=== PATIENT | female | born 1985 | race Caucasian/White ===

== ENCOUNTER 2019-08-06 15:14 | Emergency (ER) | payer OTHER ==
[~2019-08-06] VITALS: Ht 172.7 cm; Wt 68.0 kg
[2019-08-06 15:45] LABS: HEMATOCRIT 42.1 % (37.0-47.0); HEMOGLOBIN 14.3 gm/dL (12.0-15.0); MCH 30.3 pg (26.0-34.0); MCHC 33.9 g/dL (28.0-37.0); MCV 89.5 fL (80.0-100.0); MPV 9.3 fl. (7.2-11.1); RBC 4.71 mil/uL (4.20-5.00); RDW-CV 13.1 % (10.5-14.5); WBC 11.3 thou/uL (4.0-11.0)
[2019-08-06 15:52] LABS: URINE BILIRUBIN NEGATIVE (Negative); URINE BLOOD 1+ (Negative); URINE CLARITY CLEAR; URINE COLOR YELLOW; URINE GLUCOSE-RANDOM NEGATIVE (Negative); URINE KETONES 1+ (Negative); URINE LEUKOCYTES-REFLEX TRACE (Negative); URINE NITRITE-REFLEX NEGATIVE (Negative); URINE PROTEIN NEGATIVE (Negative); URINE UROBILINOGEN 0.2 E.U./dl (0.2-1.0)
[2019-08-06 16:01] LABS: AMP/METHAMP Negative (Negative); BARBITURATES Negative (Negative); BENZODIAZEPINES Negative (Negative); COCAINE Negative (Negative); METHADONE Negative (Negative); OPIATES Negative (Negative); PCP Negative (Negative); THC Negative (Negative)
[2019-08-06 16:04] LABS: MUCUS None Seen strn/LPF (None Seen)
[2019-08-06 16:05] LABS: BACTERIA-REFLEX 1-9 Few /HPF (None Seen); CASTS None Seen /LPF (None Seen); CRYSTALS None Seen /LPF (None Seen); SQUAMOUS 4-10 Moderate /LPF (0-3); URINE RBC 0-2 Rare /HPF (0-2); URINE WBC-REFLEX 0-5 Rare /HPF (0-5)
[2019-08-06] MEDS ORDERED: PEPCID40 MG PO (16:11)
[2019-08-06] MEDS ORDERED: PREDNISONE50 MG PO (16:11)
[2019-08-06 16:30] VITALS: BP 106/61
--- NOTE | 2019-08-07 14:31 | EKG ---
[place] [address] ELECTROCARDIOGRAM REPORT Name: JOSSELYN MULLER Room: [facility]#: [id number] Admission: 08/06/19 Attend Phys: Discharge: 08/06/19 Date of : 83 Report #: [id number] THIS REPORT FOR: //name// [facility] ED Test Date: 2019-08-06 Test Time: 15:18:33 Pat Name: JOSSELYN MULLER Department: Room: Gender: F [employer]: : 1985 Requested By: Sally Welsh Order Number: [id number] MD: Jacobo Gaona Measurements Intervals [place] Rate: 73 P: 3 LA: 148 QRS: 7 QRSD: 91 T: 18 QT: 395 QTc: 436 Interpretive Statements Sinus rhythm Ventricular premature complex No previous ECG available for comparison Electronically Signed On 08-07-2019 14:31:01 [employer] by Jacobo Gaona [email or web address] <ELECTRONICALLY SIGNED> By: Jacobo Gaona MD, [facility] 08/07/19 1431 1518 1518 Jacobo Gaona MD, FACC /EPI
== END 2019-08-06 16:31 | disposition home or self-care (01) ==
LOC: M.ERS 15:14
PROVIDERS: Personal Emergency Response Attendant
DX: L29.8 Other pruritus (principal); T48.4X5A Adverse effect of expectorants, initial encounter; Z90.49 Acquired absence of other specified parts of digestive tract; Z88.5 Allergy status to narcotic agent; Z88.6 Allergy status to analgesic agent; Z88.8 Allergy status to other drugs, medicaments and biological substances; Z91.018 Allergy to other foods; Y92.89 Other specified places as the place of occurrence of the external cause

== ENCOUNTER 2020-08-23 13:33 | Emergency (ER) | payer OTHER ==
[~2020-08-23] VITALS: Ht 172.7 cm; Wt 59.4 kg
[~2020-08-23 13:33] MED LIST: PEPCID40 MG PO; PREDNISONE50 MG PO
[2020-08-23] MEDS ORDERED: FLOMAX0.4 MG PO (13:45)
[2020-08-23] MEDS ORDERED: PROAIR HFA8.5 GM INH (13:45)
[2020-08-23] MEDS ORDERED: MACROBID 100 M100 MG PO (13:45)
[2020-08-23] MEDS ORDERED: OXYCODONE (13:45)
[2020-08-23] MEDS ORDERED: ALPRAZOLAM 0.50.5 M1 PO (13:46)
[2020-08-23] MEDS ORDERED: DUONEB (13:46)
[2020-08-23 13:59] LABS: URINE BILIRUBIN NEGATIVE (Negative); URINE BLOOD 3+ (Negative); URINE COLOR YELLOW; URINE GLUCOSE-RANDOM NEGATIVE (Negative); URINE KETONES NEGATIVE (Negative); URINE LEUKOCYTES-REFLEX 1+ (Negative); URINE NITRITE-REFLEX NEGATIVE (Negative); URINE PROTEIN NEGATIVE (Negative); URINE SPECIFIC GRAVITY 1.015 (1.005-1.030); URINE UROBILINOGEN 0.2 E.U./dl (0.2-1.0)
[2020-08-23 14:00] LABS: URINE CLARITY CLOUDY
[2020-08-23 14:06] LABS: SQUAMOUS >10 Many /LPF (0-3)
[2020-08-23 14:07] LABS: BACTERIA-REFLEX >30 Many /HPF (None Seen); CASTS None Seen /LPF (None Seen); URINE RBC >20 Many /HPF (0-2)
[2020-08-23 14:08] LABS: AMORPHOUS URATES Few /LPF (None Seen)
[2020-08-23 14:31] LABS: ABSOLUTE EOSINOPHILS 0.7 thou/uL (0.0-0.7); ABSOLUTE LYMPHOCYTES 1.9 thou/uL (0.8-5.3); ABSOLUTE MONOCYTES 0.9 thou/uL (0.0-1.2); ABSOLUTE NEUTROPHILS 6.4 thou/uL (1.6-8.1); BASOPHILS 0.4 %; EOSINOPHILS 6.9 %; HEMOGLOBIN 14.5 gm/dL (12.0-15.0); LYMPHOCYTES 18.8 %; MCH 30.4 pg (26.0-34.0); MCHC 33.8 g/dL (28.0-37.0); MONOCYTES 8.8 %; MPV 9.1 fl. (7.2-11.1); NUCLEATED RBCS 0 /100WBC; PLATELET COUNT* 242 thou/uL (150-400); POLYS 65.1 %; RBC 4.78 mil/uL (4.20-5.00); RDW-CV 12.2 % (10.5-14.5); WBC 9.8 thou/uL (4.0-11.0)
[2020-08-23 14:39] LABS: CALCIUM 9.1 mg/dL (8.5-10.1); CREATININE 0.7 mg/dL (0.6-1.3); POTASSIUM 3.9 mmol/L (3.5-5.1)
[2020-08-23 14:44] LABS: ALBUMIN 3.4 g/dL (3.4-5.0); TOTAL BILIRUBIN 0.1 mg/dL (<0.1-1.0); TOTAL PROTEIN 6.9 g/dL (6.4-8.2)
[2020-08-23] MEDS ORDERED: HYDROCODON-ACE1 EAC7 PO (16:37)
[2020-08-23] MEDS ORDERED: CIPRO500 MG PO (16:37)
[2020-08-23] MEDS ORDERED: ONDANSETRON ODT4 MG PO (16:37)
[2020-08-23] MEDS ORDERED: DIFLUCAN150 MG PO (18:50)
[2020-08-23 19:03] VITALS: BP 103/78
== END 2020-08-23 19:05 | disposition home or self-care (01) ==
LOC: M.ERS 13:33
PROVIDERS: Physician Assistant
DX: N39.0 Urinary tract infection, site not specified (principal); Z88.6 Allergy status to analgesic agent; Z88.8 Allergy status to other drugs, medicaments and biological substances; Z90.49 Acquired absence of other specified parts of digestive tract

== ENCOUNTER → 2020-10-02 | Outpatient (CLI) | payer OTHER ==
[~2020-10-02] MED LIST changes: +ALPRAZOLAM 0.50.5 M1 PO; +CIPRO500 MG PO; +DIFLUCAN150 MG PO; +DUONEB; +FLOMAX0.4 MG PO; +HYDROCODON-ACE1 EAC7 PO; +MACROBID 100 M100 MG PO; +ONDANSETRON ODT4 MG PO; +OXYCODONE; +PROAIR HFA8.5 GM INH
== END | disposition home or self-care (01) ==
LOC: M.RAD 09-24 13:43
PROVIDERS: ATTEND Orthopaedic Surgery
DX: M25.552 Pain in left hip (principal); S73.102A Unspecified sprain of left hip, initial encounter; Z98.890 Other specified postprocedural states; Z79.899 Other long term (current) drug therapy; Z88.8 Allergy status to other drugs, medicaments and biological substances; X58.XXXA Exposure to other specified factors, initial encounter; Y93.89 Activity, other specified; Y92.89 Other specified places as the place of occurrence of the external cause; Y99.8 Other external cause status

== ENCOUNTER 2020-12-07 11:09 | Emergency (ER) | payer OTHER ==
[~2020-12-07] VITALS: Ht 172.7 cm; Wt 61.2 kg
[2020-12-07] MEDS ORDERED: ASPIR-TRIN325 MG PO (11:43)
[2020-12-07] MEDS ORDERED: PERCOCET 5-3251 EACH PO (11:43)
[2020-12-07 12:15] LABS: ABSOLUTE BASOPHILS 0.1 thou/uL (0.0-0.2); ABSOLUTE EOSINOPHILS 0.2 thou/uL (0.0-0.7); ABSOLUTE LYMPHOCYTES 1.7 thou/uL (0.8-5.3); ABSOLUTE MONOCYTES 0.6 thou/uL (0.0-1.2); EOSINOPHILS 3.3 %; HEMATOCRIT 42.5 % (37.0-47.0); HEMOGLOBIN 14.1 gm/dL (12.0-15.0); LYMPHOCYTES 26.1 %; MCH 30.8 pg (26.0-34.0); MCHC 33.3 g/dL (28.0-37.0); MCV 92.5 fL (80.0-100.0); MONOCYTES 8.5 %; MPV 8.9 fl. (7.2-11.1); NUCLEATED RBCS 0 /100WBC; PLATELET COUNT* 227 thou/uL (150-400); POLYS 61.1 %; RBC 4.59 mil/uL (4.20-5.00); RDW-CV 12.9 % (10.5-14.5); WBC 6.6 thou/uL (4.0-11.0)
[2020-12-07 12:26] LABS: CREATININE 0.8 mg/dL (0.6-1.3); POTASSIUM 4.2 mmol/L (3.5-5.1)
[2020-12-07 12:30] LABS: ALBUMIN 3.4 g/dL (3.4-5.0); TOTAL BILIRUBIN 0.2 mg/dL (<0.1-1.0); TOTAL PROTEIN 6.9 g/dL (6.4-8.2)
[2020-12-07] MEDS ORDERED: PROAIR HFA8.5 GM INH (14:15)
[2020-12-07] MEDS ORDERED: NORCO5 PO ×2 (14:20→14:23)
[2020-12-07] MEDS ORDERED: PREDNISONE 20 M20 MG PO (14:20)
[2020-12-07] MEDS ORDERED: ONDANSETRON HCL4 M2 PO (14:20)
[2020-12-07 14:48] VITALS: BP 108/72
== END 2020-12-07 15:42 | disposition home or self-care (01) ==
LOC: M.ERS 11:09
PROVIDERS: Physician Assistant
DX: U07.1 COVID-19 (principal); J20.8 Acute bronchitis due to other specified organisms; F41.9 Anxiety disorder, unspecified; J45.909 Unspecified asthma, uncomplicated; Z98.890 Other specified postprocedural states; Z90.49 Acquired absence of other specified parts of digestive tract; Z92.0 Personal history of contraception; Z79.899 Other long term (current) drug therapy; Z79.82 Long term (current) use of aspirin; Z91.048 Other nonmedicinal substance allergy status; Z91.018 Allergy to other foods; Z88.8 Allergy status to other drugs, medicaments and biological substances; Z88.6 Allergy status to analgesic agent

== ENCOUNTER 2021-03-11 11:02 | Emergency (ER) | payer OTHER ==
[~2021-03-11] VITALS: Ht 172.7 cm; Wt 61.2 kg
[~2021-03-11 11:02] MED LIST changes: +ASPIR-TRIN325 MG PO; +NORCO5 PO; +ONDANSETRON HCL4 M2 PO; +PERCOCET 5-3251 EACH PO; +PREDNISONE 20 M20 MG PO
[2021-03-11 12:59] LABS: ABSOLUTE BASOPHILS 0.1 thou/uL (0.0-0.2); ABSOLUTE LYMPHOCYTES 1.4 thou/uL (0.8-5.3); ABSOLUTE MONOCYTES 0.7 thou/uL (0.0-1.2); ABSOLUTE NEUTROPHILS 5.8 thou/uL (1.6-8.1); BASOPHILS 0.7 %; EOSINOPHILS 0.5 %; HEMATOCRIT 45.6 % (37.0-47.0); HEMOGLOBIN 14.9 gm/dL (12.0-15.0); LYMPHOCYTES 17.9 %; MCH 30.1 pg (26.0-34.0); MCHC 32.7 g/dL (28.0-37.0); MCV 92.1 fL (80.0-100.0); MONOCYTES 9.2 %; MPV 8.4 fl. (7.2-11.1); NUCLEATED RBCS 0 /100WBC; PLATELET COUNT* 222 thou/uL (150-400); POLYS 71.7 %; RBC 4.95 mil/uL (4.20-5.00); WBC 8.1 thou/uL (4.0-11.0)
[2021-03-11 13:16] LABS: CALCIUM 9.1 mg/dL (8.5-10.1); CREATININE 0.7 mg/dL (0.6-1.3); POTASSIUM 4.2 mmol/L (3.5-5.1)
[2021-03-11 13:26] LABS: ALBUMIN 3.6 g/dL (3.4-5.0); TOTAL BILIRUBIN 0.2 mg/dL (<0.1-1.0)
[2021-03-11 13:38] LABS: URINE BILIRUBIN NEGATIVE (Negative); URINE BLOOD 1+ (Negative); URINE CLARITY CLEAR; URINE COLOR YELLOW; URINE GLUCOSE-RANDOM NEGATIVE (Negative); URINE KETONES NEGATIVE (Negative); URINE LEUKOCYTES-REFLEX NEGATIVE (Negative); URINE NITRITE-REFLEX NEGATIVE (Negative); URINE PROTEIN NEGATIVE (Negative); URINE UROBILINOGEN 0.2 E.U./dl (0.2-1.0)
[2021-03-11 13:56] LABS: BACTERIA-REFLEX 1-9 Few /HPF (None Seen); CASTS None Seen /LPF (None Seen); CRYSTALS None Seen /LPF (None Seen); MUCUS None Seen strn/LPF (None Seen); SQUAMOUS 4-10 Moderate /LPF (0-3); URINE RBC 3-10 Few /HPF (0-2); URINE WBC-REFLEX 0-5 Rare /HPF (0-5)
[2021-03-11] MEDS ORDERED: AZITHROMYCIN 2250 MG PO (14:19)
[2021-03-11] MEDS ORDERED: COMBIVENT RESPIM4 GM IH (14:19)
[2021-03-11] MEDS ORDERED: MEDROLDOSEPACK PO (14:19)
[2021-03-11 14:55] VITALS: BP 99/62
== END 2021-03-11 14:55 | disposition home or self-care (01) ==
LOC: M.ERS 11:02
PROVIDERS: Emergency Medicine; Nurse Practitioner Family
DX: J12.9 Viral pneumonia, unspecified (principal); J40 Bronchitis, not specified as acute or chronic; Z88.8 Allergy status to other drugs, medicaments and biological substances; Z88.6 Allergy status to analgesic agent; Z98.890 Other specified postprocedural states; Z20.822 Contact with and (suspected) exposure to COVID-19